=== PATIENT | female | born 2000 | race Caucasian/White ===

== ENCOUNTER 2024-08-21 | Inpatient (IN) | payer BC ==
[2024-08-21] MEDS ORDERED: Misoprostol 200 MCG Tab PO PRN ×2 (01:27→01:28)
[2024-08-21] MEDS ORDERED: Lidocaine 1% 50 ML MDV INJECT PRN (01:28)
[2024-08-21] MEDS ORDERED: Carboprost Tromethamine 250 MCG/1 mL Vial IM PRN (01:28)
[2024-08-21] MEDS ORDERED: Sodium Chloride 0.9% 10 ML Syringe FLUSH PRN (01:28)
[2024-08-21] MEDS ORDERED: Sodium Chloride 0.9% 2.5 ML Syringe FLUSH PRN (01:28)
[2024-08-21] MEDS ORDERED: Sodium Chloride 0.9% 20 ML SDV IV PRN (01:28)
[2024-08-21] MEDS ORDERED: Tranexamic Acid in NACL,ISO-OS 1,000 MG in Premix Bag 1 BAG IV PRN (01:28)
[2024-08-21] MEDS ORDERED: Misoprostol 200 MCG Tab RECTAL PRN (01:28)
[2024-08-21] MEDS ORDERED: Terbutaline 1 MG/ML SDV SUBCUT PRN (01:28)
[2024-08-21] MEDS ORDERED: Methylergonovine 0.2 MG/1 ML Amp IM PRN (01:28)
[2024-08-21] MEDS ORDERED: Butorphanol 1 MG/ML SDV IVPUSH PRN (01:28)
[2024-08-21] MEDS ORDERED: Water For Irrigation,Sterile 1,000 ML Container IRR PRN (01:28)
[2024-08-21] MEDS ORDERED: Ondansetron 4 MG/2 ML SDV IVPUSH PRN (01:28)
[2024-08-21] MEDS ORDERED: Oxytocin/0.9 % Sodium Chloride 30 UNIT/500 ML BAG IV SCH ×2 (01:30)
[2024-08-21 01:42] LABS: HEMATOCRIT 32.7 % (37.0-47.0); HEMOGLOBIN 11.1 g/dL (12.0-16.0); MEAN CORPUSCULAR HEMOGLOBIN 28.2 pg (28.0-32.0); MEAN CORPUSCULAR HGB CONC 33.9 g/dL (32.0-36.0); MEAN CORPUSCULAR VOLUME 83.2 fL (83.0-99.0); MEAN PLATELET VOLUME 11.1 fL (9.4-12.3); PLATELET COUNT,PLT 175 K/uL (150-400); RED BLOOD CELL COUNT 3.93 M/uL (4.10-5.30); WHITE BLOOD CELL COUNT,WBC 10.16 K/uL (3.9-11.3)
[2024-08-21] MEDS: Misoprostol 50 MCG (1/2 of 100 MCG) Tab PO ONE (02:01)
[2024-08-21] MEDS: Misoprostol 25 MCG (1/4 of 100 MCG) Tab VAG PRN (02:01)
[2024-08-21] MEDS: Lactated Ringers 1,000 ML IV SCH (03:45)
[2024-08-21] MEDS: Ropivacaine HCl/PF 400 MG in Premix Bag 1 BAG EPIDUR SCH (04:22)
[2024-08-21] MEDS ORDERED: Ropivacaine HCl/PF 200 ML ONE (04:24)
[2024-08-21] MEDS ORDERED: dexmedeTOMIDine HCl 200 MCG/2 ML SDV ONE (04:24)
[2024-08-21] MEDS ORDERED: Phenylephrine HCl In 0.9% NaCl 1 MG/10 ML Syringe ONE (04:24)
[2024-08-21] MEDS ORDERED: Phenylephrine HCl In 0.9% NaCl 1 MG/10 ML Syringe IVPUSH PRN (04:26)
[2024-08-21] MEDS ORDERED: ePHEDrine 50 MG/ML SDV IVPUSH PRN (04:26)
[2024-08-21] MEDS ORDERED: dexmedeTOMIDine HCl 200 MCG/2 ML SDV EPIDUR SCH (04:30)
[2024-08-21] MEDS ORDERED: Misoprostol 25 MCG (1/4 of 100 MCG) Tab VAG PRN (06:00)
[2024-08-21] MEDS ORDERED: Docusate Sodium 100 MG Cap PO PRN (07:46)
[2024-08-21] MEDS ORDERED: Simethicone 80 MG Tab.Chew PO PRN (07:46)
[2024-08-21] MEDS ORDERED: Witch Hazel Medicated Pads 40/Jar TOP PRN (07:46)
[2024-08-21] MEDS: Prenatal Multivitamin with Calcium/Folic Acid/Iron Tab PO SCH (08:00)
[2024-08-21] MEDS: Benzocaine/Menthol 20%-0.5% Spray 78 GM Cannister TOP PRN (08:00)
[2024-08-21] MEDS: Lanolin 100% Cream 7 GM Tube TOP PRN (08:00)
[2024-08-21] MEDS: Ferrous Sulfate 325 MG Tab PO SCH (08:00)
[2024-08-21] MEDS: Ibuprofen 800 MG Tab PO PRN (08:00)
[2024-08-21 09:00] LABS: PH,UMBILICAL ARTERIAL 7.31 (7.18-7.38)
[2024-08-21 09:01] LABS: PH,UMBILICAL VENOUS 7.41 (7.25-7.45)
[2024-08-21] MEDS: Acetaminophen 500 MG Tab PO PRN (20:12)
[2024-08-22 05:41] LABS: HEMATOCRIT 35.7 % (37.0-47.0); HEMOGLOBIN 11.4 g/dL (12.0-16.0); MEAN CORPUSCULAR HEMOGLOBIN 27.2 pg (28.0-32.0); MEAN CORPUSCULAR HGB CONC 31.9 g/dL (32.0-36.0); MEAN CORPUSCULAR VOLUME 85.2 fL (83.0-99.0); PLATELET COUNT,PLT 183 K/uL (150-400); RED BLOOD CELL COUNT 4.19 M/uL (4.10-5.30); WHITE BLOOD CELL COUNT,WBC 12.91 K/uL (3.9-11.3)
== END 2024-08-22 23:53 | disposition home or self-care (01) | DRG 560 ==
LOC: MW.OBCHECK → MW.OB 01:29 → OBSVTOIN 16:53
PROVIDERS: ADMIT Obstetrics & Gynecology; ATTEND Obstetrics & Gynecology
PROC: 10E0XZZ Delivery of Products of Conception, External Approach (ICD-10-PCS; principal; 2024-08-21)
PROC: 3E0R3BZ Introduction of Anesthetic Agent into Spinal Canal, Percutaneous Approach (ICD-10-PCS; 2024-08-21)
PROC: 3E0DXGC Introduction of Other Therapeutic Substance into Mouth and Pharynx, External Approach (ICD-10-PCS; 2024-08-21)
PROC: 3E0R3BZ Introduction of Anesthetic Agent into Spinal Canal, Percutaneous Approach (ICD-10-PCS; 2024-08-21)
PROC: 10907ZC Drainage of Amniotic Fluid, Therapeutic from Products of Conception, Via Natural or Artificial Opening (ICD-10-PCS; 2024-08-21)
PROC: 0HQ9XZZ Repair Perineum Skin, External Approach (ICD-10-PCS; 2024-08-21)
PROC: 0UQMXZZ Repair Vulva, External Approach (ICD-10-PCS; 2024-08-21)
DX: O99.892 Other specified diseases and conditions complicating childbirth (principal); Z3A.39 39 weeks gestation of pregnancy; Z37.0 Single live birth; O70.0 First degree perineal laceration during delivery; O71.82 Other specified trauma to perineum and vulva
CPT/HCPCS: 01967; 36415; 51702; 59025; 59409; 59414; 82803; 85027; 85460; 86592; 86850; 86900; 86901; A9270-GY; J2371; J2791; J2795; J7120